=== PATIENT | male | born 1945 | race Caucasian/White ===

== ENCOUNTER 2018-08-25 20:54 | Emergency (ER) | payer MEDICARE, OTHER ==
--- NOTE | 2018-08-25 22:23 | RADIOLOGY REPORT (SQ) ---
CT HEAD WITHOUT IV CONTRAST HISTORY: Stroke. COMPARISON: None. TECHNIQUE: CT scan of the brain without IV contrast. This exam was performed according to our departmental dose-optimization program, which includes automated exposure control, adjustment of the mA and/or kV according to patient size and/or use of iterative reconstruction technique. FINDINGS: The ventricles, cisterns, and sulci are unremarkable. No focal white matter lesions are seen. No evidence of acute infarction, intracranial hemorrhage, extra-axial fluid collection, or midline shift. No air-fluid levels are seen in the paranasal sinuses to suggest acute sinusitis. No depressed skull fracture. IMPRESSION: No acute intracranial findings are seen. Please note that MRI is more sensitive for the evaluation of early infarction, and may be performed if there is high clinical concern.
--- NOTE | 2018-08-25 22:26 | RADIOLOGY REPORT (SQ) ---
EXAM DESCRIPTION: XR CHEST 1 VIEW COMPLETED DATE/TME: 08/25/2018 22:04 CLINICAL HISTORY: 72 years, Male, vision loss COMPARISON: None. NUMBER OF VIEWS: One TECHNIQUE: Single frontal view of the chest was obtained portably LIMITATIONS: None. FINDINGS: Cardiac and mediastinal contours are normal. Lungs are clear. No pleural effusion or pneumothorax. IMPRESSION: No acute disease. copyright 2010 [employer]- All Rights Reserved
[2018-08-25 22:31] LABS: PROTHROMBIN TIME 12.6 SEC (11.4-15.4)
[2018-08-25 22:32] LABS: PARTIAL THROMBOPLASTIN TIME 33.7 SEC (23.5-35.8)
[2018-08-25 22:33] LABS: ABSOLUTE EOSINOPHILS # (AUTO) 0.1 10^3/uL (0.0-0.6); ABSOLUTE LYMPHOCYTES (AUTO) 1.3 10^3/uL (0.5-4.7); ABSOLUTE MONOCYTES (AUTO) 0.6 10^3/uL (0.1-1.4); ABSOLUTE NEUT (AUTO) 3.6 10^3/uL (1.7-8.2); BASOPHILS % (AUTO) 0.4 % (0-2); EOSINOPHILS % (AUTO) 1.8 % (0-6); HEMOGLOBIN 11.9 g/dL (13.5-17.0); LYMPHOCYTES % (AUTO) 22.6 % (13-45); MEAN CORPUSCULAR HEMOGLOBIN 30.1 pg (27.0-33.4); MEAN CORPUSCULAR HGB CONC 33.1 g/dL (32.0-36.0); MEAN CORPUSCULAR VOLUME 91 fl (80-97); MONOCYTES % (AUTO) 10.9 % (3-13); PLATELET COUNT 229 10^3/uL (150-450); RED BLOOD COUNT 3.95 10^6/uL (4.35-5.55); RED CELL DISTRIBUTION WIDTH 16.1 % (11.5-14.0); SEGMENTED NEUTROPHILS % (AUTO) 64.3 % (42-78); TOTAL CELLS COUNTED % (AUTO) 100 %; WHITE BLOOD COUNT 5.6 10^3/uL (4.0-10.5)
[2018-08-25 22:50] LABS: ALANINE AMINOTRANSFERASE 22 U/L (21-72); ALBUMIN 3.7 g/dL (3.5-5.0); ALKALINE PHOSPHATASE 27 U/L (38-126); ANION GAP 11 (5-19); ASPARTATE AMINO TRANSFERASE 18 U/L (17-59); BILIRUBIN,DIRECT 0.2 mg/dL (0.0-0.4); BILIRUBIN,TOTAL 0.3 mg/dL (0.2-1.3); BLOOD UREA NITROGEN 19 mg/dL (7-20); CALCIUM 9.6 mg/dL (8.4-10.2); CARBON DIOXIDE 29 mmol/L (22-30); CHLORIDE 101 mmol/L (98-107); GLUCOSE 147 mg/dL (75-110); SODIUM 141.3 mmol/L (137-145); TOTAL PROTEIN 6.6 g/dL (6.3-8.2)
--- NOTE | 2018-08-25 23:41 | EKG REPORT ---
SEVERITY:- ABNORMAL ECG - SINUS RHYTHM FIRST DEGREE AV BLOCK : Confirmed by: An Casillas 25-Aug-2018 23:40:01
--- NOTE | 2018-08-25 23:44 | ER Document Report ---
ED General - General Chief Complaint: Loss of Vision Stated Complaint: LOST VISION IN RT EYE SUDDENLY Time Seen by Provider: 08/25/18 22:04 Primary Care Provider: NIGHAT COHEN DO [ACTIVE STAFF] - Follow up tomorrow Notes: Patient is a 72-year-old male with history of diabetes, hypertension and peripheral vascular disease that presents to the emergency department for chief complaint of painless right eye vision loss. Patient states that this evening, he was sitting down watching TV, and noticed that he had multiple flashes across his vision in his right eye, and that his vision went black, he is never had anything like this before, his vision is since improved to a degree, but is still significantly decreased from prior. He denies having any pain associated with this, denies any redness in his eye, or any dye. Denies having any headache, lightheadedness, chest pain, shortness of breath, nausea, vomiting, facial droop, dysarthria, or difficulty speaking. Denies any numbness, tingling or weakness in any extremity. He does report prior history of having a slight "blockage" in the branches of his retinal artery, and that has been being monitored by a retinal specialist in [place] where he is from. He is in town visiting. He denies prior history of glaucoma, has had cataract surgery, and [facility] eye surgery. Past Medical History: Hypertension, hyperlipidemia, diabetes mellitus Past Surgical History: Cataract surgery, endarterectomy of the femoral artery, [facility] eye surgery Social History: Former smoker, denies alcohol or drug use. Family History: Reviewed and noncontributory for presenting illness Allergies: Reviewed, see documented allergy list. REVIEW OF SYSTEMS: Other than noted above, the 12 point review of systems was reviewed with the patient and were negative, all pertinent findings are included in the HPI. PHYSICAL EXAMINATION: Vital signs reviewed, nursing noted reviewed. GENERAL: Well-appearing, well-nourished and in no acute distress. HEAD: Atraumatic, normocephalic. EYES: Eyes appear normal, extraocular movements intact, sclera anicteric, conjunctiva are normal. PERRLA, limited nondilated funduscopic exam, demonstrate what appeared to be normal appearing retina, and red reflex bilaterally, bilateral ocular ultrasound was performed at bedside, there is no obvious retinal detachment, or intravitreal foreign body, or concern for vitreal hemorrhage. In regards to visual acuity, the patient's right eye he was able to count fingers, at a distance of about 3m. ENT: nares patent, oropharynx clear without exudates. Moist mucous membranes. NECK: Normal range of motion, supple without lymphadenopathy LUNGS: Breath sounds clear to auscultation bilaterally and equal. No wheezes rales or rhonchi. HEART: Regular rate and rhythm without murmurs ABDOMEN: Soft, nontender, normoactive bowel sounds. No rebound, guarding, or rigidity. No masses appreciated. EXTREMITIES: Nontender, good range of motion, no pitting or edema. NEUROLOGICAL: No focal neurological deficits. Moves all extremities spontaneously Motor and sensory grossly intact on exam. PSYCH: Normal mood, normal affect. SKIN: Warm, Dry, normal turgor, no rashes or lesions noted on exposed skin TRAVEL OUTSIDE OF THE [place] IN LAST 30 DAYS: No - Related Data Allergies/Adverse Reactions: No Known Allergies Allergy (Unverified 08/25/18 22:40) Past Medical History - Social History Smoking Status: Former Smoker Chew tobacco use (# tins/day): No Frequency of alcohol use: None Drug Abuse: None Family History: Reviewed & Not Pertinent Patient has suicidal ideation: No Patient has homicidal ideation: No - Past Medical History Cardiac Medical History: Reports: Hx Hypertension Endocrine Medical History: Reports: Hx Diabetes Mellitus Type 2 Renal/ Medical History: Denies: Hx Peritoneal Dialysis Physical Exam - Vital signs Vitals: Temp Pulse Resp BP Pulse Ox 98.0 F 72 20 174/80 H 97 08/25/18 21:01 08/25/18 21:01 08/25/18 21:01 08/25/18 21:01 08/25/18 21:01 Course - Re-evaluation Re-evalutation: Patient seen and examined vital signs reviewed. Laboratory data and/or imaging were ordered as appropriate for the patient's presenting symptoms and complaint, with consideration of any critical or life threatening conditions that may be associated with their obtained history and exam as noted above. Results were reviewed when available and demonstrated essentially unremarkable work-up, his ESR was essentially normal, normal CRP, the patient did not have tenderness over the scalp, CT of the head that was ordered was negative as well. The rest the patient's blood work was essentially unremarkable, normal renal function, no leukocytosis. The patient was re-evaluated and was stable, his vision seem to be stable not worsening. As mentioned bedside ultrasound was performed, and there is no presence of retinal detachment noted in the right eye, nor was there on the left, and no evidence of vitreal hemorrhage. I discussed this case at length with , with ophthalmology, who recommended aspirin which the patient is already taking, as we suspected this was most likely a vascular occlusion, leading to the patient's symptomatology, and less likely was this retinal detachment versus tear, and also less likely was vitreal hemorrhage, given normal ultrasound. He said he was see the patient early in the morning tomorrow, have the patient call his office, they could schedule him to be seen for dilated retinal exam. This was discussed with the patient and he was agreeable with this follow-up. I discussed with him if you have any further symptoms, particularly concerning for strokelike symptoms to return to the emergency department sooner. Evaluation was most consistent with right eye vision loss Results were discussed with the patient at this point, after careful consideration I feel that that patient can be discharged from the emergency department, the patient was educated treatments and reasons to return to the emergency department based on their presumed diagnosis as noted above, they were advised to followup with a primary care physician in 2-3 days. Patient was agreeable to plan of care. *Note is created using voice recognition software and may contain spelling, syntax or grammatical errors. Laboratory 08/25/18 08/25/18 08/25/18 22:10 22:10 22:10 WBC 5.6 RBC 3.95 L Hgb 11.9 L Hct 36.0 L MCV 91 MCH 30.1 MCHC 33.1 RDW 16.1 H Plt Count 229 Seg Neutrophils % 64.3 Lymphocytes % 22.6 Monocytes % 10.9 Eosinophils % 1.8 Basophils % 0.4 Absolute Neutrophils 3.6 Absolute Lymphocytes 1.3 Absolute Monocytes 0.6 Absolute Eosinophils 0.1 Absolute Basophils 0.0 ESR PT 12.6 INR 0.90 APTT 33.7 Sodium 141.3 Potassium 4.0 Chloride 101 Carbon Dioxide 29 Anion Gap 11 BUN 19 Creatinine 1.13 Est GFR ( Amer) > 60 Est GFR (Non-Af Amer) > 60 Glucose 147 H Calcium 9.6 Total Bilirubin 0.3 Direct Bilirubin 0.2 Neonat Total Bilirubin Not Reportable Neonat Direct Bilirubin Not Reportable Neonat Indirect Bili Not Reportable AST 18 ALT 22 Alkaline Phosphatase 27 L Troponin I C-Reactive Protein Total Protein 6.6 Albumin 3.7 08/25/18 08/25/18 08/25/18 22:10 22:10 22:10 WBC RBC Hgb Hct MCV MCH MCHC RDW Plt Count Seg Neutrophils % Lymphocytes % Monocytes % Eosinophils % Basophils % Absolute Neutrophils Absolute Lymphocytes Absolute Monocytes Absolute Eosinophils Absolute Basophils ESR 36 H PT INR APTT Sodium Potassium Chloride Carbon Dioxide Anion Gap BUN Creatinine Est GFR ( Amer) Est GFR (Non-Af Amer) Glucose Calcium Total Bilirubin Direct Bilirubin Neonat Total Bilirubin Neonat Direct Bilirubin Neonat Indirect Bili AST ALT Alkaline Phosphatase Troponin I < 0.012 C-Reactive Protein 8.4 Total Protein Albumin Head CT 08/25/18 00:00 IMPRESSION: No acute intracranial findings are seen. Please note that MRI is more sensitive for the evaluation of early infarction, and may be performed if there is high clinical concern. Chest X-Ray 08/25/18 22:04 IMPRESSION: No acute disease. copyright 2010 [employer]- All Rights Reserved - Vital Signs Vital signs: Temp Pulse Resp BP Pulse Ox 98.4 F 79 19 147/64 H 100 08/25/18 23:30 08/25/18 23:30 08/25/18 23:30 08/25/18 23:30 08/25/18 23:30 - Laboratory Result Diagrams: 08/25/18 22:10 08/25/18 22:10 Laboratory results interpreted by me: 08/25/18 08/25/18 08/25/18 22:10 22:10 22:10 RBC 3.95 L Hgb 11.9 L Hct 36.0 L RDW 16.1 H ESR 36 H Glucose 147 H Alkaline Phosphatase 27 L - EKG Interpretation by Me Additional EKG results interpreted by me: EKG demonstrates sinus rhythm with first-degree AV block, a ventricular rate of 71 bpm, normal axis, normal intervals, no evidence of acute ischemia, no dysrhythmias. Discharge - Discharge Clinical Impression: Vision loss of right eye Condition: Stable Disposition: HOME, SELF-CARE Additional Instructions: Please follow-up with the forest technician tomorrow, call for an appointment at 8 AM, please continue taking your aspirin daily, if you have worsening symptoms, or further concerns he can return to the emergency department but ultimately seen the forest technician, will help significantly. Referrals: NIGHAT COHEN, DO [ACTIVE STAFF] - Follow up tomorrow
[2018-08-25 23:57] VITALS: BP 147/64
== END 2018-08-25 23:56 | disposition home or self-care (01) ==
LOC: ER 20:54
DX: H54.61 Unqualified visual loss, right eye, normal vision left eye (principal); E11.9 Type 2 diabetes mellitus without complications; I10 Essential (primary) hypertension; I73.9 Peripheral vascular disease, unspecified; Z87.891 Personal history of nicotine dependence
CPT/HCPCS: 36415; 70450; 71045; 80053; 84484; 85025; 85610; 85652; 85730; 86140; 93005; 93010; 99284